=== PATIENT | female | born 1940 | race Caucasian/White ===

== ENCOUNTER → 2019-07-15 | Outpatient (CLI) | payer OTHER ==
[~2019-07-15] MED LIST: ALEVE220 MG PO; CALCIUM 600 +1 EAC6 PO; CYCLOBENZAPRINE5 MG PO; GABAPENTIN 100100 MG PO; MAGNESIUM400 M1 PO; OMEGA XL PO; OMEPRAZOLE 20 M20 M1 PO; PRENATAL FORMU1 EAC1 PO; TRAZODONE HCL50 MG PO; TYLENOL EXTRA500 MG PO; ZOLOFT25 MG PO
[2019-07-15 10:50] LABS: ABSOLUTE NEUTROPHILS 4.6 thou/uL (1.4-8.2); BASOPHILS 1.1 % (0.0-2.0); EOSINOPHILS 2.2 % (0.0-3.0); HEMOGLOBIN 14.3 gm/dL (12.0-15.0); LYMPHOCYTES 24.2 % (24.0-44.0); MCH 30.6 pg (26.0-34.0); MCHC 33.2 g/dL (28.0-37.0); MCV 92.4 fL (80.0-100.0); MONOCYTES 8.8 % (1.0-8.0); PLATELET COUNT 250 thou/uL (150-400); POLYS 63.7 % (36.0-66.0); RBC 4.66 mil/uL (4.20-5.00); RDW 13.8 % (10.5-14.5); WBC 7.3 thou/uL (4.0-11.0)
[2019-07-15 11:05] LABS: ALBUMIN 3.4 g/dL (3.4-5.0); CALCIUM 8.9 mg/dL (8.5-10.1); CREATININE 0.8 mg/dL (0.6-1.0); POTASSIUM 4.1 mmol/L (3.5-5.1); TOTAL BILIRUBIN 0.3 mg/dL (<0.1-1.0); TOTAL PROTEIN 6.6 g/dL (6.4-8.2)
--- NOTE | 2019-07-16 14:06 | EKG ---
[address] [address] ELECTROCARDIOGRAM REPORT Name: EDNA DE LA CRUZ Room #: PRE [facility]#: [id number] Admission: Attend Phys: Patricio Obrien MD Discharge: Date of : 42 Report #: [id number] THIS REPORT FOR: //name// [facility] Test Date: 2019-07-15 Test Time: 10:35:15 Pat Name: EDNA DE LA CRUZ Department: Room: Gender: F Chair Maker: mary : 1940 Requested By: Patricio Obrien Order Number: [id number] MD: Jigar Zee Measurements Intervals [place] Rate: 71 P: 51 [place]: 168 QRS: -20 QRSD: 135 T: 64 QT: 437 QTc: 475 Interpretive Statements Sinus rhythm Left bundle branch block No previous ECG available for comparison Electronically Signed On 07-16-2019 14:06:02 CDT by Jigar Zee [email or web address] <ELECTRONICALLY SIGNED> By: Jigar Zee MD 07/16/19 1406 1035 1035 MD ISAIAH Jacobson
== END | disposition home or self-care (01) ==
LOC: CANPRESDC → PAC 10:30 → OR 07-22 09:57 → EDSTATUS 09-25 11:06 → OR 09-25 14:00
PROVIDERS: Neurological Surgery
DX: M51.16 Intervertebral disc disorders with radiculopathy, lumbar region (principal); Z53.8 Procedure and treatment not carried out for other reasons